=== PATIENT | female | born 1960 | race Caucasian/White ===

== ENCOUNTER 2023-01-02 15:59 | Inpatient (IN) | payer OTHER ==
[~2023-01-02] VITALS: Ht 167.6 cm; Wt 93.0 kg
[2023-01-02] MEDS ORDERED: FUSICAP PO (16:22)
[2023-01-02] MEDS ORDERED: CYCL5TAB PO (16:22)
[2023-01-02] MEDS ORDERED: SYNT150T PO (16:22)
[2023-01-02] MEDS ORDERED: META1TAB22 PO (16:22)
[2023-01-02] MEDS ORDERED: LOSA50TA5 PO (16:22)
[2023-01-02] MEDS ORDERED: HYOS0.1214 PO (16:22)
[2023-01-02] MEDS ORDERED: HYDR2TAB2 PO ×2 (16:22→20:47)
[2023-01-02] MEDS ORDERED: PANT40TA29 PO (16:22)
[2023-01-02] MEDS ORDERED: HYDR-3363 PO (16:22)
[2023-01-02] MEDS ORDERED: MAGN400T2 PO (16:22)
[2023-01-02] MEDS ORDERED: HYOS0.1259 PO (16:22)
[2023-01-02] MEDS ORDERED: ONDANSETRON 4MG 2ML VIAL IV ONE (17:45)
[2023-01-02] MEDS ORDERED: HYDROMORPHONE HCL 0.5 MG/ 0.5 ML SYRINGE IV PRN (17:45)
[2023-01-02] MEDS ORDERED: NS 1,000 ML IV ONE ×2 (17:45→22:00)
[2023-01-02 18:23] LABS: HEMATOCRIT 42.8 % (36.0-47.0); HEMOGLOBIN 13.8 g/dl (12.0-15.5); MEAN CORPUSCULAR HEMOGLOBIN 28.5 pg (27.0-33.0); MEAN CORPUSCULAR HGB CONC 32.2 g/dl (32.0-36.5); MEAN CORPUSCULAR VOLUME 88.4 fl (80.0-96.0); PLATELET COUNT, AUTOMATED 251 10^3/uL (150-450); RED BLOOD COUNT 4.84 10^6/uL (4.00-5.40); WHITE BLOOD COUNT 10.6 10^3/uL (4.0-10.0)
[2023-01-02 18:49] LABS: LIPASE 50 U/L (12-53)
[2023-01-02 18:51] LABS: ALKALINE PHOSPHATASE 145 U/L (46-116); ALT/SGPT 41 U/L (7.0-40); AST/SGOT 41 U/L (<34); BILIRUBIN,DIRECT 0.1 MG/DL (<0.4); BILIRUBIN,TOTAL 0.3 MG/DL (0.3-1.2); TOTAL PROTEIN 6.6 G/DL (5.7-8.2)
[2023-01-02 18:58] LABS: ATYPICAL LYMPH 11 % (0-5); EOSINOPHILS 2 % (0-3); LYMPHOCYTES 38 % (16-44); MONOCYTES 7 % (0-5); NEUTROPHILS 39 % (28-66); PLATELET ESTIMATE NORMAL (NORMAL)
[2023-01-02 18:59] LABS: ANISOCYTOSIS 1+
[2023-01-02 19:34] LABS: BLOOD UREA NITROGEN 16 MG/DL (9-23); CALCIUM LEVEL 8.9 MG/DL (8.3-10.6); CARBON DIOXIDE LEVEL 29 MMOL/L (20-31); CHLORIDE LEVEL 102 MMOL/L (98-107); CREATININE FOR GFR 0.81 MG/DL (0.55-1.30); GLOMERULAR FILTRATION RATE > 60.0 (>45); GLUCOSE, FASTING 108 MG/DL (74-106); POTASSIUM SERUM 4.2 MMOL/L (3.5-5.1); SODIUM LEVEL 137 MMOL/L (136-145)
[2023-01-02] MEDS ORDERED: ISOVUE-370 76% 100ML VIAL As Ordered ONE (19:48)
[2023-01-02] MEDS ORDERED: CYCL-707 PO (20:47)
[2023-01-02] MEDS ORDERED: ZOLP10TA2 PO (20:49)
[2023-01-02] MEDS ORDERED: POTA-298 PO (20:49)
[2023-01-02] MEDS ORDERED: BUDE32SU6 (20:49)
[2023-01-02] MEDS ORDERED: STEL90IN INJ (20:49)
[2023-01-02] MEDS ORDERED: DICY20TA20 PO (20:49)
[2023-01-02] MEDS ORDERED: HOME MED LIST COMPLETE! XX SCH (20:50)
[2023-01-02] MEDS ORDERED: ONDANSETRON 4MG 2ML VIAL IV PRN (22:40)
[2023-01-02] MEDS ORDERED: SODIUM CHLORIDE 0.9% 1000ML IV SCH (22:40)
[2023-01-02] MEDS ORDERED: NS 1,000 ML IV SCH (22:40)
[2023-01-02] MEDS ORDERED: VANCOMYCIN ORAL SOL 250MG/5ML ORAL SYRINGE PO STA (23:05)
[2023-01-02] MEDS: ACETAMINOPHEN TAB 650MG DOSE (2X325MG) PO PRN (23:14)
[2023-01-02 23:23] LABS: HEMATOCRIT 40.2 % (36.0-47.0); HEMOGLOBIN 13.2 g/dl (12.0-15.5); MEAN CORPUSCULAR HEMOGLOBIN 28.6 pg (27.0-33.0); MEAN CORPUSCULAR HGB CONC 32.8 g/dl (32.0-36.5); MEAN CORPUSCULAR VOLUME 87.2 fl (80.0-96.0); PLATELET COUNT, AUTOMATED 249 10^3/uL (150-450); RED BLOOD COUNT 4.61 10^6/uL (4.00-5.40); WHITE BLOOD COUNT 12.2 10^3/uL (4.0-10.0)
[2023-01-02 23:25] VITALS: BP 147/75; TEMP 101; O2SAT 99
[2023-01-03] VITALS (7 sets, daily range): BP systolic 112–138; BP diastolic 61–72; TEMP 96.7–99.8; O2SAT 92–98
[2023-01-03] MEDS: HYDROMORPHONE HCL 0.5 MG/ 0.5 ML SYRINGE IV PRN ×4 (00:16→11:24)
[2023-01-03] MEDS: FIDAXOMICIN 200 MG TAB (DIFICID) PO SCH ×3 (00:52→20:30)
[2023-01-03] MEDS ORDERED: ACETAMINOPHEN TAB 650MG DOSE (2X325MG) PO ONE (01:30)
[2023-01-03] MEDS ORDERED: KETOROLAC 30 MG/ML 1ML VIAL IV ONE (04:05)
[2023-01-03] MEDS: HEPARIN SOD (PORCINE) 5000UNITS/ML 1ML VIAL/SYRINGE SC SCH ×3 (05:42→22:52)
[2023-01-03] MEDS: LEVOTHYROXINE 150MCG TABLET (0.15MG) PO SCH (05:42)
[2023-01-03] MEDS ORDERED: VANCOMYCIN ORAL SOL 250MG/5ML ORAL SYRINGE PO SCH (06:00)
[2023-01-03 07:00] LABS: ALBUMIN 2.7 G/DL (3.2-5.2); ALKALINE PHOSPHATASE 120 U/L (46-116); ALT/SGPT 34 U/L (7.0-40); AST/SGOT 35 U/L (<34); BILIRUBIN,TOTAL 0.3 MG/DL (0.3-1.2); BLOOD UREA NITROGEN 10 MG/DL (9-23); CALCIUM LEVEL 7.9 MG/DL (8.3-10.6); CARBON DIOXIDE LEVEL 24 MMOL/L (20-31); CHLORIDE LEVEL 106 MMOL/L (98-107); CREATININE FOR GFR 0.82 MG/DL (0.55-1.30); GLOMERULAR FILTRATION RATE > 60.0 (>45); GLUCOSE, FASTING 92 MG/DL (74-106); POTASSIUM SERUM 3.6 MMOL/L (3.5-5.1); SODIUM LEVEL 138 MMOL/L (136-145); TOTAL PROTEIN 5.8 G/DL (5.7-8.2)
[2023-01-03] MEDS: PANTOPRAZOLE 40MG TAB (PROTONIX) PO SCH (08:00)
[2023-01-03] MEDS: ACETAMINOPHEN TAB 650MG DOSE (2X325MG) PO PRN ×3 (08:46→20:30)
[2023-01-03] MEDS: LIDOCAINE 5% (LIDODERM) PATCH TD SCH (12:07)
[2023-01-03] MEDS: HYDROmorphone 2 MG TAB PO PRN ×3 (14:16→22:52)
[2023-01-03] MEDS: zolPIDEM TARTRATE 5 MG TAB PO SCH (20:30)
[2023-01-04] VITALS (7 sets, daily range): BP systolic 122–147; BP diastolic 61–74; TEMP 96.3–99; O2SAT 93–99
[2023-01-04] MEDS: HYDROmorphone 2 MG TAB PO PRN ×5 (03:04→22:45)
[2023-01-04 05:02] LABS: HEMATOCRIT 36.4 % (36.0-47.0); MEAN CORPUSCULAR HEMOGLOBIN 28.9 pg (27.0-33.0); MEAN CORPUSCULAR VOLUME 87.7 fl (80.0-96.0); PLATELET COUNT, AUTOMATED 280 10^3/uL (150-450); RED BLOOD COUNT 4.15 10^6/uL (4.00-5.40)
[2023-01-04 05:16] LABS: ALBUMIN 2.6 G/DL (3.2-5.2); ALKALINE PHOSPHATASE 116 U/L (46-116); ALT/SGPT 31 U/L (7.0-40); AST/SGOT 35 U/L (<34); BILIRUBIN,TOTAL 0.2 MG/DL (0.3-1.2); BLOOD UREA NITROGEN 7 MG/DL (9-23); CALCIUM LEVEL 7.8 MG/DL (8.3-10.6); CARBON DIOXIDE LEVEL 26 MMOL/L (20-31); CHLORIDE LEVEL 104 MMOL/L (98-107); CREATININE FOR GFR 0.74 MG/DL (0.55-1.30); GLOMERULAR FILTRATION RATE > 60.0 (>45); GLUCOSE, FASTING 89 MG/DL (74-106); MAGNESIUM LEVEL 1.5 MG/DL (1.8-2.4); POTASSIUM SERUM 3.9 MMOL/L (3.5-5.1); SODIUM LEVEL 138 MMOL/L (136-145); TOTAL PROTEIN 5.6 G/DL (5.7-8.2)
[2023-01-04 05:23] LABS: ATYPICAL LYMPH 28 % (0-5); BASOPHILS 1 % (0-1); EOSINOPHILS 2 % (0-3); LYMPHOCYTES 29 % (16-44); MONOCYTES 4 % (0-5); NEUTROPHILS 35 % (28-66); PLATELET ESTIMATE NORMAL (NORMAL)
[2023-01-04 05:24] LABS: PLATELET CLUMPS SMALL AMT; SMUDGE CELLS 2+
[2023-01-04] MEDS: LEVOTHYROXINE 150MCG TABLET (0.15MG) PO SCH (05:50)
[2023-01-04] MEDS: HEPARIN SOD (PORCINE) 5000UNITS/ML 1ML VIAL/SYRINGE SC SCH ×3 (05:50→20:47)
[2023-01-04] MEDS: ACETAMINOPHEN TAB 650MG DOSE (2X325MG) PO PRN ×2 (05:51→20:46)
[2023-01-04] MEDS: MAG SULF 1GM/100ML (MAG RUN) 1 GM in IV 1 EA IV SCH ×2 (05:52→06:54)
[2023-01-04] MEDS ORDERED: MAGNESIUM OXIDE 400MG TAB (MAG-OX) PO ONE (08:00)
[2023-01-04] MEDS: FIDAXOMICIN 200 MG TAB (DIFICID) PO SCH ×2 (08:58→20:46)
[2023-01-04] MEDS: PANTOPRAZOLE 40MG TAB (PROTONIX) PO SCH (08:58)
[2023-01-04] MEDS: LIDOCAINE 5% (LIDODERM) PATCH TD SCH (08:58)
[2023-01-04] MEDS: IBUPROFEN 400MG TAB PO PRN (11:58)
[2023-01-04] MEDS: zolPIDEM TARTRATE 5 MG TAB PO SCH (20:46)
[2023-01-05 04:00] VITALS: BP 132/90; TEMP 97.8; O2SAT 96
[2023-01-05] MEDS: IBUPROFEN 400MG TAB PO PRN ×2 (05:30→09:31)
[2023-01-05] MEDS: LEVOTHYROXINE 150MCG TABLET (0.15MG) PO SCH (05:30)
[2023-01-05] MEDS: HEPARIN SOD (PORCINE) 5000UNITS/ML 1ML VIAL/SYRINGE SC SCH ×2 (05:30→14:10)
[2023-01-05 06:56] LABS: HEMATOCRIT 37.7 % (36.0-47.0); HEMOGLOBIN 12.4 g/dl (12.0-15.5); MEAN CORPUSCULAR HEMOGLOBIN 28.2 pg (27.0-33.0); MEAN CORPUSCULAR HGB CONC 32.9 g/dl (32.0-36.5); MEAN CORPUSCULAR VOLUME 85.9 fl (80.0-96.0); PLATELET COUNT, AUTOMATED 293 10^3/uL (150-450); RED BLOOD COUNT 4.39 10^6/uL (4.00-5.40); WHITE BLOOD COUNT 13.1 10^3/uL (4.0-10.0)
[2023-01-05 07:14] LABS: ATYPICAL LYMPH 7 % (0-5); BASOPHILS 1 % (0-1); EOSINOPHILS 1 % (0-3); LYMPHOCYTES 49 % (16-44); MONOCYTES 8 % (0-5); NEUTROPHILS 34 % (28-66)
[2023-01-05 07:15] LABS: PLATELET ESTIMATE NORMAL (NORMAL)
[2023-01-05 07:21] VITALS: BP 114/56; TEMP 98.4; O2SAT 93
[2023-01-05 07:29] LABS: ALBUMIN 2.8 G/DL (3.2-5.2); ALKALINE PHOSPHATASE 126 U/L (46-116); ALT/SGPT 34 U/L (7.0-40); AST/SGOT 41 U/L (<34); BILIRUBIN,TOTAL 0.3 MG/DL (0.3-1.2); BLOOD UREA NITROGEN 7 MG/DL (9-23); CALCIUM LEVEL 7.9 MG/DL (8.3-10.6); CARBON DIOXIDE LEVEL 24 MMOL/L (20-31); CHLORIDE LEVEL 107 MMOL/L (98-107); CREATININE FOR GFR 0.63 MG/DL (0.55-1.30); GLOMERULAR FILTRATION RATE > 60.0 (>45); GLUCOSE, FASTING 129 MG/DL (74-106); MAGNESIUM LEVEL 1.6 MG/DL (1.8-2.4); POTASSIUM SERUM 3.6 MMOL/L (3.5-5.1); SODIUM LEVEL 138 MMOL/L (136-145)
[2023-01-05] MEDS: HYDROmorphone 2 MG TAB PO PRN ×2 (07:29→11:59)
[2023-01-05] MEDS ORDERED: FAMOTIDINE 20 MG TAB PO SCH (09:00)
[2023-01-05] MEDS ORDERED: DIFI200T PO (09:13)
[2023-01-05] MEDS: MAG SULF 1GM/100ML (MAG RUN) 1 GM in IV 1 EA IV SCH ×2 (09:21→10:56)
[2023-01-05] MEDS: FIDAXOMICIN 200 MG TAB (DIFICID) PO SCH (09:22)
[2023-01-05] MEDS: LIDOCAINE 5% (LIDODERM) PATCH TD SCH (09:22)
[2023-01-05] MEDS ORDERED: FAMO20TA PO (12:50)
[2023-01-05] MEDS ORDERED: FIDAXOMICIN 200 MG TAB (DIFICID) PO ONE (16:00)
== END 2023-01-05 16:43 | disposition home or self-care (01) | DRG 720 ==
LOC: M ED 15:59 → M ED INP 21:42 → M PCU 23:24
PROVIDERS: ADMIT Internal Medicine; ATTEND Family Medicine
DX: A41.9 Sepsis, unspecified organism (principal); A04.71 Enterocolitis due to Clostridium difficile, recurrent; K50.90 Crohn's disease, unspecified, without complications; F11.20 Opioid dependence, uncomplicated; D72.820 Lymphocytosis (symptomatic); E03.9 Hypothyroidism, unspecified; K21.9 Gastro-esophageal reflux disease without esophagitis; Z20.822 Contact with and (suspected) exposure to COVID-19; Z79.890 Hormone replacement therapy; Z88.0 Allergy status to penicillin; Z79.899 Other long term (current) drug therapy; Z85.3 Personal history of malignant neoplasm of breast; M25.551 Pain in right hip; M25.552 Pain in left hip

== ENCOUNTER 2023-01-14 13:56 | Outpatient (CLI) | payer OTHER ==
[~2023-01-14] VITALS: Ht 167.6 cm; Wt 93.0 kg
[~2023-01-14 13:56] MED LIST: BUDE32SU6; CYCL-707 PO; CYCL5TAB PO; DICY20TA20 PO; DIFI200T PO; FAMO20TA PO; FUSICAP PO; HYDR-3363 PO; HYDR2TAB2 PO; HYOS0.1214 PO; HYOS0.1259 PO; LOSA50TA5 PO; MAGN400T2 PO; META1TAB22 PO; PANT40TA29 PO; POTA-298 PO; STEL90IN INJ; SYNT150T PO; ZOLP10TA2 PO
[2023-01-14 14:38] VITALS: BP 145/76; O2SAT 96
[2023-01-14 15:30] VITALS: BP 132/72; O2SAT 96
[2023-01-14] MEDS ORDERED: BEZLOTOXUMAB IV ONE (16:00)
[2023-01-14] MEDS ORDERED: NS IV ONE (16:00)
== END 2023-01-14 15:30 ==
LOC: M INFU 13:56
PROVIDERS: ATTEND Internal Medicine Infectious Disease
DX: A04.71 Enterocolitis due to Clostridium difficile, recurrent (principal); Z88.0 Allergy status to penicillin
CPT/HCPCS: 96365; J0565

== ENCOUNTER → 2023-02-08 | Outpatient (CLI) | payer OTHER ==
[2023-02-08 13:41] LABS: BASO # 0.1 10^3/uL (0.0-0.2); BASO % 1.2 % (0.0-1.0); EOS # 0.6 10^3/uL (0.0-0.5); EOS % 8.7 % (0.0-3.0); HEMATOCRIT 42.9 % (36.0-47.0); HEMOGLOBIN 13.2 g/dl (12.0-15.5); LYMPH # 3.1 10^3/uL (1.5-5.0); LYMPH % 42.9 % (24.0-44.0); MEAN CORPUSCULAR HGB CONC 30.8 g/dl (32.0-36.5); MEAN CORPUSCULAR VOLUME 91.1 fl (80.0-96.0); MONO # 0.7 10^3/uL (0.0-0.8); MONO % 9.7 % (2.0-8.0); NEUTROPHILS # 2.7 10^3/uL (1.5-8.5); NEUTROPHILS % 37.4 % (36.0-66.0); PLATELET COUNT, AUTOMATED 302 10^3/uL (150-450); RED BLOOD COUNT 4.71 10^6/uL (4.00-5.40); WHITE BLOOD COUNT 7.3 10^3/uL (4.0-10.0)
[2023-02-08 13:43] LABS: IRON (FE) 46 UG/DL (50-170)
[2023-02-08 13:44] LABS: ALBUMIN 3.7 G/DL (3.2-5.2); ALKALINE PHOSPHATASE 74 U/L (46-116); ALT/SGPT 25 U/L (7.0-40); AST/SGOT 28 U/L (<34); BILIRUBIN,TOTAL 0.4 MG/DL (0.3-1.2); BLOOD UREA NITROGEN 6 MG/DL (9-23); CALCIUM LEVEL 10.2 MG/DL (8.3-10.6); CARBON DIOXIDE LEVEL 30 MMOL/L (20-31); CHLORIDE LEVEL 104 MMOL/L (98-107); CREATININE FOR GFR 0.71 MG/DL (0.55-1.30); GLOMERULAR FILTRATION RATE > 60.0 (>45); GLUCOSE, FASTING 106 MG/DL (74-106); MAGNESIUM LEVEL 1.8 MG/DL (1.8-2.4); PERCENT SATURATION 15.6 % (13.2-45.0); POTASSIUM SERUM 3.8 MMOL/L (3.5-5.1); SODIUM LEVEL 139 MMOL/L (136-145); TOTAL IRON BINDING CAPACITY 294 UG/DL (250-425); TOTAL PROTEIN 7.5 G/DL (5.7-8.2)
[2023-02-08 13:46] LABS: THYROID STIMULATING HORMONE 0.098 uIU/ML (0.55-4.78)
== END ==
LOC: M PLALAB 11:17
PROVIDERS: ATTEND Internal Medicine Infectious Disease
DX: A04.72 Enterocolitis due to Clostridium difficile, not specified as recurrent (principal); E83.42 Hypomagnesemia; E61.1 Iron deficiency; E03.9 Hypothyroidism, unspecified